=== PATIENT | male | born 1950 | race Caucasian/White ===

== ENCOUNTER 2019-12-21 06:44 | Day surgery (SDC) | payer BC, OTHER ==
[~2019-12-21] VITALS: Ht 177.8 cm; Wt 66.1 kg
[~2019-12-21 06:44] MED LIST: ASPI-496 PO; ATEN25TA PO; ATOR40TA78 PO; AZEL137S4 NAS; DOCU-180 PO; LORA-445 PO; TAMS-11 PO
[2019-12-21] MEDS ORDERED: LACTATED RINGERS 1,000 ML IV SCH (07:16)
[2019-12-21 07:21] VITALS: BP 141/64
[2019-12-21] MEDS ORDERED: CHLORHEXIDINE 15 ML UDC ONE (07:26)
[2019-12-21] MEDS ORDERED: CHLORHEXIDINE 15 ML UDC MM ONE (07:30)
[2019-12-21] MEDS ORDERED: PROPOFOL 10 MG/ML, 100ML IV ONE (08:46)
[2019-12-21] MEDS ORDERED: FENTANYL PF 100 MCG/2ML IV PRN (09:30)
[2019-12-21] MEDS ORDERED: OXYcodone 5 MG/5 ML ORAL.SOL UDC PO PRN (09:30)
[2019-12-21] MEDS ORDERED: ALBUTEROL SULFATE 2.5 MG/3 ML NPPB PRN (09:30)
[2019-12-21] MEDS ORDERED: ACETAMINOPHEN 325 MG TABLET PO PRN (09:30)
[2019-12-21] MEDS ORDERED: ONDANSETRON 2MG/ML, 2ML IVPush PRN (09:30)
[2019-12-21] MEDS ORDERED: LABETALOL 5MG/ML, 20ML IV PRN (09:30)
== END 2019-12-21 10:40 | disposition home or self-care (01) ==
LOC: OUT 06:44
PROVIDERS: ATTEND Internal Medicine Geriatric Medicine
DX: K22.8 Other specified diseases of esophagus (principal); C15.9 Malignant neoplasm of esophagus, unspecified; K22.10 Ulcer of esophagus without bleeding; J44.9 Chronic obstructive pulmonary disease, unspecified; F17.210 Nicotine dependence, cigarettes, uncomplicated; Z79.899 Other long term (current) drug therapy; Z85.810 Personal history of malignant neoplasm of tongue; Z92.21 Personal history of antineoplastic chemotherapy
CPT/HCPCS: 43239; 43259; 88305; 93005; J2704; J7120

== ENCOUNTER 2020-01-07 07:00 | Day surgery (SDC) | payer OTHER ==
[~2020-01-07] VITALS: Ht 177.8 cm; Wt 65.5 kg
[~2020-01-07 07:00] MED LIST changes: +BUPIVACAINE/EPI 0.5% 1:200K ONE
[2020-01-07] MEDS ORDERED: CHOL10003 PO (08:13)
[2020-01-07] MEDS ORDERED: GLUC15006 PO (08:13)
[2020-01-07] MEDS ORDERED: LACTATED RINGERS 1,000 ML IV SCH ×2 (08:15→09:39)
[2020-01-07] MEDS ORDERED: CHLORHEXIDINE 15 ML UDC ONE (08:18)
[2020-01-07] MEDS ORDERED: LIDOCAINE-MPF 1%, 2ML ONE (08:18)
[2020-01-07 08:24] VITALS: BP 152/53
[2020-01-07] MEDS ORDERED: CHLORHEXIDINE 15 ML UDC MM ONE (08:30)
[2020-01-07] MEDS ORDERED: LIDOCAINE-MPF 1%, 2ML INFIL ONE (08:30)
[2020-01-07] MEDS ORDERED: PROPOFOL 50 ML ONE (08:57)
[2020-01-07] MEDS ORDERED: FENTANYL PF 250 MCG/5ML ONE (08:59)
[2020-01-07] MEDS ORDERED: CEFAZOLIN 1,000 MG ONE (09:04)
[2020-01-07] MEDS ORDERED: SUCCINYLCHOLINE 20 MG/ML, 10ML ONE (09:04)
[2020-01-07] MEDS ORDERED: ROCURONIUM 10 MG/ML,10ML ONE (09:04)
[2020-01-07] MEDS ORDERED: DIPHENHYDRAMINE 50 MG/ML, 1ML IVPush PRN (09:30)
[2020-01-07] MEDS ORDERED: ONDANSETRON 2MG/ML, 2ML IVPush PRN ×2 (09:30→10:00)
[2020-01-07] MEDS ORDERED: PROMETHAZINE 25 MG/ML, 1ML IVPush PRN (09:30)
[2020-01-07] MEDS ORDERED: OXYcodone 5 MG/5 ML ORAL.SOL UDC PO PRN (09:30)
[2020-01-07] MEDS ORDERED: FENTANYL PF 100 MCG/2ML IV PRN (09:30)
[2020-01-07] MEDS ORDERED: EPHEDRINE 50 MG/ML, 1ML IM PRN (09:30)
[2020-01-07] MEDS ORDERED: MEPERIDINE/PF 25MG/0.5ML IVPush PRN (09:30)
[2020-01-07] MEDS ORDERED: DIAZEPAM 5 MG/ML, 2ML IVPush PRN (09:30)
[2020-01-07] MEDS ORDERED: morphine SULFATE 10 MG/ML, 1ML IVPush PRN (09:30)
[2020-01-07] MEDS ORDERED: EPHEDRINE 50 MG/ML, 1ML IVPush PRN (09:30)
[2020-01-07] MEDS ORDERED: HYDROcodone/APAP 7.5-325MG/15ML UDC PO PRN (10:00)
== END 2020-01-07 11:45 | disposition home or self-care (01) ==
LOC: OUT 07:00
PROVIDERS: ATTEND Thoracic Surgery (Cardiothoracic Vascular Surgery)
DX: C15.9 Malignant neoplasm of esophagus, unspecified (principal); Z11.59 Encounter for screening for other viral diseases; F41.9 Anxiety disorder, unspecified; E78.00 Pure hypercholesterolemia, unspecified; J44.9 Chronic obstructive pulmonary disease, unspecified; Z72.0 Tobacco use; Z98.890 Other specified postprocedural states; Z79.82 Long term (current) use of aspirin; Z79.899 Other long term (current) drug therapy; Z85.810 Personal history of malignant neoplasm of tongue; Z80.3 Family history of malignant neoplasm of breast
CPT/HCPCS: 36415; 43653; 87635; B4087; J0330; J0690; J2704; J3010; J7120